=== PATIENT | male | born 1950 | race Caucasian/White ===

== ENCOUNTER 2023-03-15 06:14 | Day surgery (SDC) | payer OTHER, MEDICARE ==
[2023-03-09 17:36] VITALS: BMI 30.8
[2023-03-15] MEDS ORDERED: MIDAZOLAM HCL 2 MG/2 ML SINGLE DOSE VIAL ONE (07:09)
[2023-03-15] MEDS ORDERED: LIDOCAINE HCL/PF 2% SDV 5ML VIAL ONE (07:09)
[2023-03-15] MEDS ORDERED: PROPOFOL 60 ML ONE (07:09)
[2023-03-15] MEDS ORDERED: LIDOCAINE HCL 2% (20ML MULTI-DOSE VIAL) ONE (07:18)
[2023-03-15] MEDS ORDERED: BUPIVACAINE HCL/PF 0.25% (2.5MG/ML) 10 ML VIAL ONE (07:18)
[2023-03-15] MEDS ORDERED: LIDOCAINE HCL 2% (50ML VIAL) NR ONE (07:48)
[2023-03-15] MEDS ORDERED: ONDANSETRON 4 MG/2 ML VIAL ONE (07:50)
[2023-03-15] MEDS ORDERED: DEXAMETHASONE SOD PHOSPHATE 4 MG/1 ML VIAL ONE (07:50)
[2023-03-15] MEDS ORDERED: KETOROLAC TROMETHAMINE 30 MG/1 ML VIAL ONE (07:50)
[2023-03-15 08:26] VITALS: RESP 16; TEMP 96.6
[2023-03-15 08:40] VITALS: BP 120/65; PULSE 70
== END 2023-03-15 08:55 | disposition home or self-care (01) ==
LOC: FASU 06:14
PROVIDERS: ATTEND Orthopaedic Surgery Hand Surgery
PROC: 0LN80ZZ Release Left Hand Tendon, Open Approach (ICD-10-PCS; principal; 2023-03-15 07:56)
DX: M65.312 Trigger thumb, left thumb (principal)